=== PATIENT | female | born 1990 | race Caucasian/White ===

== ENCOUNTER → 2018-08-06 | Outpatient (CLI) | LOC: LABNPT 09:08 | PROVIDERS: ATTEND Obstetrics & Gynecology | DX: O28.8 Other abnormal findings on antenatal screening of mother (principal) | CPT/HCPCS: 82570; 84156 ==

== ENCOUNTER 2018-08-23 18:01 | Inpatient (IN) | payer BC, OTHER ==
[2018-08-23] VITALS (23 sets, daily range): BP systolic 80–143; BP diastolic 37–80
[~2018-08-23] VITALS: Ht 165.1 cm; Wt 116.6 kg
--- NOTE | 2018-08-23 17:55 | NUR ---
SATYA MUNOZ presented to unit via AMBULATORY from HOME, accompanied by S/O, with c/o CONTRACTIONS. SATYA MUNOZ weighed, gowned, voided, and to bed. EFHM and TOCO applied, VS taken. SATYA MUNOZ oriented to bed controls, call light, TV, heat, and A/C controls.
--- NOTE | 2018-08-23 18:18 | NUR ---
DR. SHAHID NOTIFIED OF PT'S ARRIVAL, , 39-12/21, C/O, SVE. NEW ORDERS RECEIVED.
[2018-08-23] MEDS ORDERED: AMPICILLIN 2,000 MG/20 ML (IV USE) ONE (18:19)
[2018-08-23] MEDS ORDERED: D5 LR IV SOLUTION 1,000 ML IV ONE (18:19)
[2018-08-23] MEDS ORDERED: NS (IVPB) 50 ML ONE (18:20)
[2018-08-23] MEDS ORDERED: PREN1TAB73 PO (18:51)
--- NOTE | 2018-08-23 19:00 | NUR ---
REFER TO LABOR FLOW SHEET.
[2018-08-23] MEDS ORDERED: AMPICILLIN FOR IV USE 2,000 MG in NS (IVPB) 50 ML IV SCH (19:06)
[2018-08-23] MEDS ORDERED: D5 LR IV SOLUTION 1,000 ML IV SCH ×2 (19:15→19:43)
--- NOTE | 2018-08-23 19:15 | NUR ---
REPORT TO Bennie MCCLURE RN.
[2018-08-23 19:53] LABS: BASOPHILS % (AUTO) 0 % (0-10); EOSINOPHILS # (AUTO) 0.1 10^3/uL (0.0-0.3); EOSINOPHILS % (AUTO) 1 % (0-10); HEMATOCRIT 35 % (35-52); HEMOGLOBIN 11.5 G/DL (11.5-16.0); LYMPHOCYTES # (AUTO) 2.9 X 10^3 (1.0-4.0); LYMPHOCYTES % (AUTO) 22 % (12-44); MEAN CORPUSCULAR HEMOGLOBIN 29 PG (25-34); MEAN CORPUSCULAR HGB CONC 33 G/DL (32-36); MEAN CORPUSCULAR VOLUME 89 FL (80-99); MEAN PLATELET VOLUME 11.7 FL (7.4-10.4); MONOCYTES # (AUTO) 0.9 X 10^3 (0.0-1.0); MONOCYTES % (AUTO) 7 % (0-12); NEUTROPHILS # (AUTO) 9.2 X 10^3 (1.8-7.8); NEUTROPHILS % (AUTO) 70 % (42-75); PLATELET COUNT 347 10^3/uL (130-400); RED BLOOD COUNT 3.92 10^6/uL (4.35-5.85); RED CELL DISTRIBUTION WIDTH 14.1 % (10.0-14.5); WHITE BLOOD COUNT 13.1 10^3/uL (4.3-11.0)
[2018-08-23] MEDS: LACTATED RINGERS 1,000 ML IV SCH ×2 (19:53→21:05)
[2018-08-23] MEDS ORDERED: OXYTOCIN/NORMAL SALINE 500 ML IV SCH (19:59)
[2018-08-23] MEDS ORDERED: SUFENTA 0.6MCG/ML BUPIVA 0.125 100 ML ONE (20:02)
--- NOTE | 2018-08-23 20:03 | History & Physical ---
History and Physical Date Seen by Provider: Aug 23, 2018 Time Seen by Provider: 20:02 This patient is a 28-year-old G1 white female with an EDC of 1 919 putting her 39-5/7 weeks' gestation on the day of admission. She presented with complaint of contractions pain and pressure. She was 3 cm dilated on initial evaluation and is now 5 cm dilated and that was than a period of about 1 hour. She history is significant for GBS positive culture after 35 weeks gestation and she has artificial started on ampicillin for GBS prophylaxis. She denies rupture membranes or bleeding. She's had no problems with his to date. Allergies are none Medications are vitamins Medical social and surgical histories are per the antepartum record HEENT exam is normal Neck is supple no lymphadenopathy no thyromegaly Abdomen is gravid soft nontender nondistended Extremities show no clubbing or cyanosis. There is no Homans sign. Pelvic exam is pending Laboratory Tests 08/23/18 18:40 Assessment and plan term at 39+ weeks' gestation with a GBS positive culture. Patient is receiving prophylactic ampicillin and well be managed expectantly with anticipation for vaginal delivery. 39 week in active labor Allergies and Home Medications Allergies Coded Allergies: No Known Drug Allergies (Unverified , 08/23/18) Home Medications Pnv95/Ferrous Fumarate/FA 1 Each Tablet, 1 EACH PO DAILY, (Reported) Patient Home Medication List Home Medication List Reviewed: Yes TENZIN SHAHID MD Aug 23, 2018 20:03
[2018-08-23] MEDS ORDERED: fentaNYL INJECTION 100 MCG/2 ML AMP ONE (20:28)
[2018-08-23] MEDS ORDERED: BUPIVACAINE 0.25% 30 ML (SENSORCAINE) VIAL ONE (20:28)
[2018-08-23] MEDS ORDERED: NALOXONE 0.4 MG/ML 1 ML (NARCAN) VIAL IV PRN ×2 (21:15)
[2018-08-23] MEDS ORDERED: ONDANSETRON 4 MG/2 ML (SDV) Z0FRAN IV PRN (21:15)
[2018-08-23] MEDS ORDERED: diphenhydrAMINE 50 MG/ML INJ (BENADRYL) IV PRN (21:15)
[2018-08-23] MEDS ORDERED: EPIDURAL (SUFENTA 0.6MCG/ML BUPIVA 0.125%) 100 ML BAG EPI PRN (21:15)
[2018-08-23] MEDS ORDERED: METOCLOPRAMIDE INJ 10 MG/2 ML (REGLAN) IV PRN (21:15)
[2018-08-23] MEDS ORDERED: CATHETER FLUSH 10 ML SYR IV SCH (22:00)
[2018-08-23] MEDS ORDERED: AMPICILLIN FOR IV USE 1,000 MG in NS (IVPB) 50 ML IV SCH (23:00)
[2018-08-24] VITALS (15 sets, daily range): BP systolic 110–180; BP diastolic 56–112
[2018-08-24] MEDS ORDERED: LIDOCAINE/EPI 2% 1:200,00 (XYLOCAINE) 10 ML VIAL ONE ×2 (01:16→01:19)
--- NOTE | 2018-08-24 02:00 | NUR ---
Pt on l side. denies needs. ff u/0. minimal rubra noted.
[2018-08-24] MEDS ORDERED: OXYTOCIN/NORMAL SALINE 500 ML IV SCH (02:06)
[2018-08-24] MEDS ORDERED: KETOROLAC 30 MG/ML VIAL ONE (02:07)
[2018-08-24] MEDS ORDERED: TETANUS,DIPTH,PERTUSS P/F (BOOSTRIX) 0.5 ML VIAL IM ONE (02:15)
[2018-08-24] MEDS ORDERED: oxyCODONE/APAP 5/325MG (PERCOCET 5) TABLET PO PRN (02:15)
[2018-08-24] MEDS ORDERED: MEASLES,MUMPS,RUBELLA 1 EA INJ SC ONE (02:15)
[2018-08-24] MEDS ORDERED: KETOROLAC 30 MG/ML VIAL IV SCH (02:15)
[2018-08-24] MEDS ORDERED: ONDANSETRON 4 MG/2 ML (SDV) Z0FRAN IVP PRN (02:15)
[2018-08-24] MEDS ORDERED: BENZOCAINE/MENTHOL (DERMOPLAST) 56 ML CAN TP PRN (02:15)
--- NOTE | 2018-08-24 02:47 | NUR ---
Pt latched infant to L side. Tolearated well. denies needs.
--- NOTE | 2018-08-24 03:40 | NUR ---
Pt ready to move to new room. Gown changed, v pad and panties on. fundal massage given. ff u/0. minimal rubra. epidural catheter removed. bandaid applied. Pt transferred to easily. legs steady, denies dizziness. Transferred to room 306. pt up to br. able to void. Abbey care done with minimal assist. pt ambulates back to bed. will monitor.
--- NOTE | 2018-08-24 07:02 | OPERATIVE REPORT ---
DATE OF SERVICE: 08/24/2018 The patient delivered by a term spontaneous vaginal delivery a viable female infant with Apgars of 8 and 9 at 1 and 5 minutes respectively. Weight is 7 pounds and 13 ounces and a time of 01:33. Cord blood pH is pending as well. The infant was delivered over a midline episiotomy performed at the patient's request to shorten the second stage of labor. The perineum had been infiltrated with 1% lidocaine with epinephrine prior to the episiotomy. The patient delivered the baby fairly promptly after the episiotomy was performed. The had a nuchal cord x1 that was easily released. The was bulb suctioned on delivery of the head and again on completion of delivery. Umbilical cord after delivery was doubly clamped, father cut the cord, the baby was passed to mom's abdomen. Placenta delivered promptly spontaneously Birch. It was normal with a 3-vessel cord. The cervix, vagina, rectum and perineum were examined and found intact, except for the midline episiotomy that was repaired with a single suture of 3-0 Vicryl Rapide in the usual manner without difficulty to good hemostasis and to good reapproximation. Sponge and needle counts were correct on completion of delivery and the repair. Estimated blood loss was around 300 mL. The patient tolerated the delivery and the repair well and remained in the LDR for recovery. The baby remained with the mom. Job ID: [id number] DocumentID: [id number] Dictated Date: 08/24/2018 01:54:13 [employer] Cutting Machine Operator Date: 08/24/2018 07:01:14 Dictated By: TENZIN SHAHID MD MTDD
--- NOTE | 2018-08-24 07:24 | Progress Note-Standard ---
Standard Progress Note Progress Notes/Assess & Plan Date Seen by a Provider: Aug 24, 2018 Time Seen by a Provider: 07:23 Progress/Assessment & Plan This patient is without complaint. She is ambulating, voiding, tolerating oral intake well has good pain control. Vital Signs 08/24/18 08/24/18 00:42 03:35 Temp 99.8 Pulse 89 Resp 18 B/P (MAP) 133/77 (95) Pulse Ox 98 O2 Delivery Room Air Vital signs are stable. Patient is afebrile. Fundus is firm below the umbilicus and nontender. Extremities show no clubbing cyanosis. There is no Homans sign. Some pretibial pitting edema that is normal. Assessment and plan day number 1 status post term spontaneous vaginal delivery doing well. Plan is for routine convalescence care today with discharge home tomorrow TENZIN SHAHID MD Aug 24, 2018 07:24
[2018-08-24] MEDS ORDERED: DOCU100C37 PO (07:32)
[2018-08-24] MEDS ORDERED: IBUP-1780 PO (07:32)
[2018-08-24] MEDS ORDERED: OXYC1TAB87 PO (07:32)
--- NOTE | 2018-08-24 07:32 | Anesthesia-Regional Post-Op ---
Regional Patient Condition Mental Status: Alert, Oriented x3 Circulation: Same as Pre-Op Headache: Absent Sensation: Full Recovery Motor Block: Absent Post Op Complications Complications None Follow Up Care/Instructions Patient Instructions None needed. Anesthesia/Patient Condition Patient is doing well, no complaints, stable vital signs, no apparent adverse anesthesia problems. No complications reported per nursing. BRI STOVALL CRNA Aug 24, 2018 07:31
--- NOTE | 2018-08-24 07:34 | Discharge Instructions ---
Discharge Instructions Discharge Medications New, Converted or Re-Newed RX: RX on Chart Patient Instructions Patient Instructions: As directed Return to The Hospital For: As directed Activity & Diet Discharge Diet: No Restrictions Activity as Tolerated: No Orders-Post D/C & Referrals Follow Up Appt: Call to make follow up appt. for patient in 4 weeks. Activity Per routine post vaginal delivery instructions. Diet as tolerated Patient may shower or tub bathe as desired. TENZIN SHAHID MD Aug 24, 2018 07:34
[2018-08-24] MEDS ORDERED: IBUPROFEN 800 MG (MOTRIN) TAB PO ONE ×3 (07:51→20:37)
--- NOTE | 2018-08-24 08:00 | NUR ---
A.M. ASSESSMENT COMPLETED. VSS.
[2018-08-24] MEDS: IBUPROFEN 800 MG (MOTRIN) TAB PO SCH ×3 (08:11→20:51)
[2018-08-24] MEDS: DOCUSATE SODIUM 100 MG (COLACE) CAP PO SCH (08:12)
--- NOTE | 2018-08-24 10:00 | NUR ---
VISITORS AT BEDSIDE. OFFERS NO COMPLAINTS.
--- NOTE | 2018-08-24 12:30 | NUR ---
VSS. EATING STORK MEAL. OFFERS NO COMPLAINTS.
--- NOTE | 2018-08-24 16:00 | NUR ---
PT HAS HAD SEVERAL VISITORS TODAY. DOING WELL. OFFERS NO COMPLAINTS. CONTINUES TO CARE FOR IN ROOM.
[2018-08-25 02:25] VITALS: BP 126/82
[2018-08-25] MEDS: IBUPROFEN 800 MG (MOTRIN) TAB PO SCH ×2 (02:25→08:52)
[2018-08-25] MEDS: DOCUSATE SODIUM 100 MG (COLACE) CAP PO SCH ×2 (02:25→08:52)
--- NOTE | 2018-08-25 07:30 | NUR ---
DR. SHAHID HERE TO SEE PT. PLANS FOR DISCHARGE TODAY.
--- NOTE | 2018-08-25 07:42 | Progress Note-Standard ---
Standard Progress Note Progress Notes/Assess & Plan Date Seen by a Provider: Aug 25, 2018 Time Seen by a Provider: 07:41 Progress/Assessment & Plan This patient is without complaint. She is ambulating, voiding, tolerating oral intake well has good pain control. Vital Signs 08/24/18 08/24/18 00:42 03:35 Temp 99.8 Pulse 89 Resp 18 B/P (MAP) 133/77 (95) Pulse Ox 98 O2 Delivery Room Air Vital signs are stable. Patient is afebrile. Fundus is firm below the umbilicus and nontender. Extremities show no clubbing cyanosis. There is no Homans sign. Some pretibial pitting edema that is normal. Assessment and plan day number 1 status post term spontaneous vaginal delivery doing well. Plan is for routine convalescence care today with discharge home tomorrow August 25, 2018 Patient without complaint. She is ambulating, voiding, tolerating oral intake well has good pain control. Patient is requesting discharge home. Vital Signs 08/25/18 02:25 Temp 98.3 Pulse 93 Resp 18 B/P (MAP) 126/82 (97) Pulse Ox 97 O2 Delivery Room Air Vital signs are stable. Patient is afebrile. Fundus is firm below the umbilicus and nontender. Extremities show no clubbing cyanosis. There is no Homans sign. Assessment and plan day number 2 status post term spontaneous vaginal delivery at 39+ weeks' gestation. Patient is doing well will be discharged home with follow-up in clinic Final Diagnosis 39 week spontaneous vaginal delivery TENZIN SHAHID MD Aug 25, 2018 07:42
[2018-08-25 08:45] VITALS: BP 137/73
--- NOTE | 2018-08-25 08:45 | NUR ---
A.M. ASSESSMENT COMPLETED. VSS. DOING WELL.
--- NOTE | 2018-08-25 10:00 | NUR ---
SHOWERED WITHOUT PROBLEMS. CARING FOR . WELL.
--- NOTE | 2018-08-25 12:30 | NUR ---
NO CHANGE IN STATUS. RXS GIVEN PREVIOUSLY FOR SPOUSE TO GET FILLED R/T PT GOING TO ROOMING IN STATUS.
--- NOTE | 2018-08-25 15:00 | NUR ---
CARING FOR INFANT IN ROOM. CONTINUES TO DO WELL.
[2018-08-25 16:55] VITALS: BP 129/76
--- NOTE | 2018-08-25 16:55 | NUR ---
DISCHARGE INSTRUCTIONS REVIEWED WITH COPY TO PT. RXS GIVEN EARLIER AND SPOUSE HAD FILLED. STATES UNDERSTANDING OF ALL INSTRUCTIONS AND NEED TO F/U SCHEDULED AND NEEDED.
[2018-08-25 17:00] VITALS: BP 129/76
--- NOTE | 2018-08-25 17:00 | NUR ---
DISMISSED FROM [facility] IN STABLE CONDITION. PT TO BE A ROOMING IN MOTHER R/T INFANT HAVING TO STAY.
== END 2018-08-25 17:00 | disposition home or self-care (01) | DRG 807 ==
LOC: LDRP 18:01 → WSo 18:01 → LDRP 19:43 → WS 08-24 03:40
PROVIDERS: ADMIT Obstetrics & Gynecology; ATTEND Obstetrics & Gynecology
PROC: 10E0XZZ Delivery of Products of Conception, External Approach (ICD-10-PCS; principal; 2018-08-24)
PROC: 0W8NXZZ Division of Female Perineum, External Approach (ICD-10-PCS; 2018-08-24)
DX: O69.81X0 Labor and delivery complicated by cord around neck, without compression, not applicable or unspecified (principal); O99.820 Streptococcus B carrier state complicating pregnancy; Z3A.39 39 weeks gestation of pregnancy; Z37.0 Single live birth
CPT/HCPCS: 36415; 85025; 86850; 86900; 86901; 99212

== ENCOUNTER 2021-02-06 13:22 | Outpatient (CLI) | payer BC ==
[~2021-02-06] VITALS: Ht 167.7 cm; Wt 107.2 kg
[2021-02-06 13:13] VITALS: BP 140/69
[~2021-02-06 13:22] MED LIST: DOCU100C37 PO; IBUP-1780 PO; OXYC1TAB87 PO; PREN1TAB73 PO
[2021-02-06 13:30] VITALS: BP 140/69
--- NOTE | 2021-02-07 08:04 | Physician Query-Final Dx ---
EMIL NATH 02/07/21 0804: Clinic Account Progress/Dx Physician Query: Please give diagnosis Please include # weeks gestation Date of Service Feb 06, 2021 at 13:22 TENZIN SHAHID MD 02/07/21 1247: Clinic Account Progress/Dx DIAGNOSIS: Diagnosis 23 weeks gestation with decreased movement EMIL NATH Feb 07, 2021 08:04 TENZIN SHAHID MD Feb 07, 2021 12:47
== END 2021-02-06 13:55 | disposition home or self-care (01) ==
LOC: WSo 13:22 → LDRP 13:22 → WSo 13:55
PROVIDERS: ATTEND Obstetrics & Gynecology
DX: O36.8120 Decreased fetal movements, second trimester, not applicable or unspecified (principal); Z3A.23 23 weeks gestation of pregnancy
CPT/HCPCS: 99213